=== PATIENT | male | born 1990 | race Caucasian/White ===

== ENCOUNTER 2016-09-07 12:43 | Emergency (ER) | payer OTHER ==
[2016-09-07] MEDS ORDERED: DIPHTH,PERTUSS(ACELL),TET VAC 0.5 ML VIAL IM ONE ×2 (13:22→13:36)
[2016-09-07] MEDS ORDERED: IBUPROFEN 400 MG TABLET PO ONE (13:34)
[2016-09-07] MEDS ORDERED: IBUPROFEN 400 MG TABLET ONE (13:35)
[2016-09-07] MEDS ORDERED: ceFAZolin SODIUM 1 GM VIAL IM ONE ×2 (14:23→15:15)
[2016-09-07] MEDS ORDERED: LIDOCAINE HCL 20 ML VIAL ONE (14:36)
[2016-09-07] MEDS ORDERED: BUPIVACAINE HCL 50 ML VIAL IJ ONE (14:36)
--- NOTE | 2016-09-07 14:49 | ERNOTE ---
Medical Problem HPI - Narrative Date of Service: 09/07/16 - General Chief Complaint: Laceration Time Seen by Provider: 09/07/16 13:44 Source: patient, family Exam Limitations: no limitations - Immun/Allergies/Home Medications Immunizations: IMMUNIZATION HX Immunizations Up to Date Yes History of Influenza Vaccine Yes Home Medications: HOME MEDICATIONS Amox Tr/Potassium Clavulanate [Augmentin 500-125 Tablet] 500 mg PO TID #14 tab 09/07/16 [Last Taken Unknown] Ibuprofen [Motrin] 800 mg PO QID PRN #20 tab 09/07/16 [Last Taken Unknown] - History of Present History Narrative: He is from the [place], [place] area. Just before coming to the [facility] ER, he was chopping up deer meet with a shelia. He accidentally cut his distal left index and middle finger. He does not recall his last tetanus shot. He only wants ibuprofen for pain. Timing: other Severity: mild, moderate Modifying Factors - (Improves): Present: rest Modifying Factors - (Worsens): Present: movement Review of Systems - Review of Systems Constitutional: Present: no symptoms reported EYE: Present: no symptoms reported ENT: Present: no symptoms reported Respiratory: Present: no symptoms reported Cardiology: Present: no symptoms reported Gastrointestinal/Abdominal: Present: no symptoms reported Genitourinary: Present: no symptoms reported Musculoskeletal: Present: See HPI Skin: Present: See HPI Neurological: Present: no symptoms reported Endocrine: Present: no symptoms reported Hematologic/Lymphatic: Present: no symptoms reported Psych: Present: no symptoms reported All Other Systems: All systems neg except as marked - Patient's Past Medical History Patient History - Medical: No pertinent hx Patient History - Cardiac/Respiratory: No pertinent hx Patient History - Cancer: No Hx of Cancer Patient History - Surgical Procedures: Other - Social History Smoking Status: Never smoker Have you smoked in the past 12 months: No Do you dip or chew tobacco: No Alcohol Use: occasionally Drug Use: none Physical Exam - Physical Exam General Appearance: Present: wd/wn, alert, no apparent distress Eye Exam: Normal inspection: bilateral, PERRL: bilateral, EOMI: bilateral Ears, Nose, Throat: Present: normal ENT inspection Neck: Present: normal inspection Respiratory: Present: no respiratory distress Cardiovascular/Chest: Present: regular rate, rhythm Extremity Exam: Present: other - small portion of distal left index finger and nail cut. about a third of the tip and nail of the distal middle finger cut. pressure applied controls bleeding. Neurological Exam: Present: alert, oriented, normal mood/affect Skin Exam: Present: normal color, warm/dry ED Progress - Vital Signs Patient's Vital Signs:: I have reviewed the patient's vital signs. Vital Signs: Vital Signs 09/07/16 13:03 Temperature 36 C L Pulse Rate 65 Respiratory 14 Rate Blood Pressure 122/75 O2 Sat by Pulse 99 Oximetry - Progress/Reassessment Chief Complaint: Laceration Progress Note-Subjective: 09/07/16 14:45 I spoke with our orthopedic surgeon, Dr. Rodriguez, and with the patient and with the patient's fiancee. All at present are in agreement for definitive intial repair here, as the patient lives in the [place] area. He will be getting in a little more than 3 weeks. Departure - Departure Clinical Impression: Laceration of finger Qualifiers: Encounter type: initial encounter Qualified Code(s): S61.219A - Laceration without foreign body of unspecified finger without damage to nail, initial encounter Phalanx, distal fracture of finger Qualifiers: Encounter type: initial encounter Finger: middle finger Fracture type: open Fracture alignment: nondisplaced Laterality: left Qualified Code(s): S62.663B - Nondisplaced fracture of distal phalanx of left middle finger, initial encounter for open fracture Condition: Good Instructions: Finger Fracture, [id number], Laceration Care, Adult, Easy-to- Read Additional Instructions: Follow Dr. Rodriguez's specific instructions regarding your injury. Prescriptions: Amox Tr/Potassium Clavulanate [Augmentin 500-125 Tablet] 500 mg PO TID #14 tab Ibuprofen [Motrin] 800 mg PO QID PRN #20 tab PRN Reason: pain
[2016-09-07] MEDS ORDERED: PROMETHAZINE HCL 25 MG/ML AMPUL ONE (15:05)
[2016-09-07] MEDS ORDERED: MEPERIDINE HCL/PF 75 MG/ML SYRG ONE (15:05)
[2016-09-07] MEDS ORDERED: MEPERIDINE HCL/PF 75 MG/ML SYRG IM ONE (15:06)
[2016-09-07] MEDS ORDERED: PROMETHAZINE HCL 25 MG/ML AMPUL IM ONE (15:07)
--- NOTE | 2016-09-07 16:43 | CONS ---
[facility] - General Date of Service: 09/07/16 Narrative: Mr. Moran is a 26-year-old gentleman who was maturing a deer when he cut his finger with a meat shelia. This resulted in a laceration to the index finger into the nailbed but not involving any other bone or deep tissues. He also resulted in a partial femur to be dictation as long finger with exposed bone and significant loss of soft tissues. He was seen in emergency department received tetanus IM Ancef and pain medicines. He denies any other injuries or any prior difficulties with his hand. He is right-handed. Source: patient Exam Limitations: no limitations - History of Present Illness Timing/Duration: 4-6 hours Modifying Factors - (Worsens): Reports: movement Modifying Factors - (Improves): Reports: immobilization, medication Associated Symptoms: denies symptoms Allergies/Adverse Reactions: Allergies doxycycline Allergy (Verified 09/07/16 15:07) - Patient's Past Medical History Patient History - Medical: No pertinent hx Patient History - Cardiac/Respiratory: No pertinent hx Patient History - Cancer: No Hx of Cancer Patient History - Surgical Procedures: Other - Social History Smoking Status: Never smoker Have you smoked in the past 12 months: No Do you dip or chew tobacco: No Alcohol Use: occasionally Drug Use: none Review of Systems - Review of Systems Misc: All systems neg except as marked Physical Examination - Exam Narrative: Left hand: There is an oblique laceration to the radial aspect of his index finger at the fingertip. This involves a minimal portion of his nail. This tissue is clean and healthy-appearing. His long finger there is dorsal soft tissue loss involving approximately 50% of the sterile matrix and a loss of soft tissue. There is pulsatile bleeding and exposed bone. 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 Dressings were applied. He is to keep these on for 3 days. His index finger encumbered Band-Aids and as long finger as well with Band-Aids after removing the surgical dressing. History C7 days of Augmentin for prophylaxis secondary to his injury. He'll see further medical care near his home town in [place] for suture removal in approximately a week. He has our phone number to call with any questions or concerns. Problem: Acute
[2016-09-07 18:59] VITALS: BP 116/72
== END 2016-09-07 16:40 | disposition home or self-care (01) ==
LOC: ER 12:43
PROC: 0X6P0Z3 Detachment at Left Index Finger, Low, Open Approach (ICD-10-PCS; principal; 2016-09-07)
PROC: 0HBQXZZ Excision of Finger Nail, External Approach (ICD-10-PCS; 2016-09-07)
DX: S68.621A Partial traumatic transphalangeal amputation of left index finger, initial encounter (principal); W26.0XXA Contact with knife, initial encounter; Y93.89 Activity, other specified; Z23 Encounter for immunization